=== PATIENT | female | born 1985 | race Hispanic/Latino ===

== ENCOUNTER 2018-03-16 09:22 | Emergency (ER) | payer SELFPAY ==
[2018-03-16 10:43] LABS: Absolute Lymphocytes (CBC) 2.6 K/uL (0.7-4.9); Absolute Monocytes 0.6 K/uL (0.1-1.3); Absolute Neutrophil 6.6 K/uL (1.8-8.0); Basophils % 0.8 % (0-1.3); Hematocrit 42.8 % (36.0-45.0); Lymphocytes % 25.8 % (15.3-44.8); MCH 29.7 pg (27.0-35.0); MCV 89.5 fL (80-100); MPV 8.4 fL (7.6-11.3); Monocytes % 5.9 % (3.3-12.3); RBC Red Blood Cell Count 4.79 M/uL (3.86-4.86)
[2018-03-16 10:54] LABS: Urine Blood NEGATIVE (NEG); Urine Glucose 2+ (NEG); Urine Protein NEGATIVE (NEG); Urine Specific Gravity 1.015 (1.005-1.030)
[2018-03-16 10:56] LABS: BUN Blood Urea Nitrogen 12 mg/dL (6-20); Bicarbonate 27 mEq/L (21-31); Glucose Level 245 mg/dL (65-120); Potassium 3.6 mEq/L (3.6-5.0); Sodium Level 134 mEq/L (135-145)
--- NOTE | 2018-03-16 11:02 | RAD REPORT ---
EXAM DESCRIPTION: CT - Head Brain Wo Cont - 03/16/2018 10:49 am CLINICAL HISTORY: Left arm numbness COMPARISON: March 2017 TECHNIQUE: Computed axial tomography of the head was obtained. IV contrast was not requested. All CT scans are performed using dose optimization technique as appropriate and may include automated exposure control or mA/KV adjustment according to patient size. FINDINGS: The most inferior slice demonstrates narrowing of the thecal sac at C1-2 measuring about 7 millimeters. An intracranial bleed is not seen . The ventricles are normal in caliber. No extra-axial fluid collection is noted. Moderate low-density areas within periventricular, deep and subcortical white matter likely represent ischemic changes secondary to small vessel disease. Fluid within the sinuses/ mastoids is not seen. IMPRESSION: Mild to moderate central spinal stenosis involving the upper cervical spine is suspected . MRI is recommended
--- NOTE | 2018-03-16 12:34 | ER ---
Nurse's Notes [facility] Name: Georgia Fields Age: 32 yrs Sex: Female : 1985 Arrival Date: 03/16/2018 Time: 09:23 Bed 19 Private MD: Diagnosis: Hyperglycemia, unspecified;Paresthesia of skin Presentation: 03/16 09:47 Presenting complaint: Patient states: Numbness to left leg that was present upon waking aj up this AM at 0530. Reports numbness has spread to left shoulder. Gait is undisturbed. Speech is clear with no facial droop noted at this time. Transition of care: patient was not received from another setting of care. Onset of symptoms was March 16, 2018 at 05:30. Initial Sepsis Screen: Does the patient meet any 2 criteria? No. Patient's initial sepsis screen is negative. Does the patient have a suspected source of infection? No. Patient's initial sepsis screen is negative. Care prior to arrival: None. 09:47 Method Of Arrival: Ambulatory 09:47 Acuity: MITESH 3 aj Triage Assessment: 09:50 General: Appears in no apparent distress. comfortable, Behavior is calm, cooperative, aj appropriate for age. Pain: Denies pain. Neuro: Level of Consciousness is awake, alert, obeys commands, Oriented to person, place, time, situation, Appropriate for age Jammer Hooker are equal bilaterally Moves all extremities. Full function Gait is steady, Speech is normal, Facial symmetry appears normal, Pupils are PERRLA, Numbness in left clavicle, anterior aspect of left upper chest, left arm and left leg. Respiratory: Airway is patent Trachea midline Respiratory effort is even, unlabored, Respiratory pattern is regular, symmetrical. Derm: Skin is intact, is healthy with good turgor, Skin is pink, warm \T\ dry. normal. 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 - Social history:: Smoking status: Patient/guardian denies using tobacco. - Family history:: not pertinent. - Hospitalizations: : No recent hospitalization is reported. Screenin:17 Abuse screen: Denies threats or abuse. Nutritional screening: No deficits noted. ae1 Tuberculosis screening: No symptoms or risk factors identified. Fall Risk None identified. Assessment: 10:00 General: Appears in no apparent distress. comfortable. Pain: Denies pain. Neuro: Level ae1 of Consciousness is awake, alert, obeys commands, Oriented to person, place, time, situation, Appropriate for age. Cardiovascular: Heart tones S1 S2 present Patient's skin is warm and dry. Respiratory: Airway is patent Respiratory effort is even, unlabored, Respiratory pattern is regular, symmetrical, Breath sounds are clear bilaterally. GI: No signs and/or symptoms were reported involving the gastrointestinal system. : No signs and/or symptoms were reported regarding the genitourinary system. EENT: No signs and/or symptoms were reported regarding the EENT system. Derm: No signs and/or symptoms reported regarding the dermatologic system. Musculoskeletal: Reports numbness in left arm and left leg. 12:36 Reassessment: Patient appears in no apparent distress at this time. Patient and/or ae1 family updated on plan of care and expected duration. Pain level reassessed. Patient denies pain at this time. Vital Signs: 09:50 BP 142 / 76; Pulse 83; Resp 19; Temp 98.4; Pulse Ox 97% on R/A; Weight 72.12 kg; Height aj 5 ft. 0 in. (152.40 cm); Pain 0/10; 10:43 BP 125 / 76; Pulse 72; Resp 18; Pulse Ox 99% on R/A; ae1 12:36 BP 137 / 82; Pulse 80; Resp 18; Pulse Ox 99% on R/A; ae1 09:50 Body Mass Index 31.05 (72.12 kg, 152.40 cm) aj ED Course: 09:23 Patient arrived in ED. as 09:50 Triage completed. aj 09:50 Arm band placed on right wrist. Patient placed in an exam room. aj 09:59 Jackson Ruiz MD is Attending Physician. rn 10:00 Placed in gown. Bed in low position. Call light in reach. Side rails up X 1. Pulse ox ae1 on. NIBP on. Warm blanket given. 10:41 Naveen Mccloud RN is Primary Nurse. ae1 10:42 Inserted saline lock: 20 gauge in right antecubital area, using aseptic technique. ae1 Blood collected. 10:[address] via wheelchair. ae1 10:49 CT Head Brain wo Cont In Process Unspecified. EDMS 11:52 Patient taken to an exam room, via wheelchair, Patient moved to MRI. lc 12:15 C Spine W Cont In Process Unspecified. EDMS 12:15 MRI completed. Patient tolerated well. Patient moved back from MRI. em2 12:17 No provider procedures requiring assistance completed. ae1 13:08 IV discontinued, intact, bleeding controlled, No redness/swelling at site. Pressure ae1 dressing applied. Administered Medications: No medications were administered Outcome: 12:34 Discharge ordered by . rn 13:08 Discharged to home ambulatory. ae1 13:08 Condition: stable 13:08 Discharge instructions given to patient, Instructed on discharge instructions, follow up and referral plans. medication usage, Demonstrated understanding of instructions, Prescriptions given X 2. 13:08 Patient left the ED. ae1 Signatures: Dispatcher [employer] EDMS My Cardenas RN RN aj Compean, Lorena lc Martinez, Amelia as Nieto, Roman, MD MD rn Montes, Enrique em2 Naveen Mccloud RN RN ae1 Corrections: (The following items were deleted from the chart) 12:22 12:17 IV discontinued, intact, bleeding controlled, No redness/swelling at site. ae1 Pressure dressing applied, ae1 12:22 12:18 Condition: stable ae1 ae1 12:22 12:18 Discharged to home ambulatory, ae1 ae1 12:22 12:18 Discharge instructions given to patient, Instructed on discharge instructions, ae1 follow up and referral plans. medication usage, Demonstrated understanding of instructions, Prescriptions given X 2, ae1
--- NOTE | 2018-03-16 12:34 | EDPHYS ---
Physician Documentation [facility] Name: Georgia Fields Age: 32 yrs Sex: Female : 1985 Arrival Date: 03/16/2018 Time: 09:23 Bed 19 Private MD: ED Physician Jackson Ruiz HPI: 03/16 10:20 This 32 yrs old Female presents to ER via Ambulatory with complaints of rn Numbness. 10:20 The patient's problem is reported as paresthesias, in left upper extremity, in left rn lower extremity. Onset: The symptoms/episode began/occurred this morning. The symptoms are alleviated by nothing. The symptoms are aggravated by nothing. Severity of symptoms: At their worst the symptoms were mild in the emergency department the symptoms are unchanged. The patient has not experienced similar symptoms in the past. Reports woke up this morning with numbness to left shoulder and left thigh, not entire limbs, no weakness, no other focal neurological complaint, reports diabetic for atleast 4-5 years but only took prescribed medication for first year. Does not give reason why. . 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 - Social history:: Smoking status: Patient/guardian denies using tobacco. - Family history:: not pertinent. - Hospitalizations: : No recent hospitalization is reported. ROS: 10:22 Constitutional: Negative for fever, chills, and weight loss, Eyes: Negative for injury, rn pain, redness, and discharge, Neck: Negative for injury, pain, and swelling, Cardiovascular: Negative for chest pain, palpitations, and edema, Respiratory: Negative for shortness of breath, cough, wheezing, and pleuritic chest pain, Abdomen/GI: Negative for abdominal pain, nausea, vomiting, diarrhea, and constipation, MS/Extremity: Negative for injury and deformity, Skin: Negative for injury, rash, and discoloration, Neuro: + paresthesias Exam: 10:22 Constitutional: This is a well developed, well nourished patient who is awake, alert, rn and in no acute distress. Head/Face: Normocephalic, atraumatic. Eyes: Pupils equal round and reactive to light, extra-ocular motions intact. Lids and lashes normal. Conjunctiva and sclera are non-icteric and not injected. Cornea within normal limits. Periorbital areas with no swelling, redness, or edema. Neck: Trachea midline, no thyromegaly or masses palpated, and no cervical lymphadenopathy. Supple, full range of motion without nuchal rigidity, or vertebral point tenderness. No Meningismus. Cardiovascular: Regular rate and rhythm with a normal S1 and S2. No gallops, murmurs, or rubs. Normal PMI, no JVD. No pulse deficits. Respiratory: Lungs have equal breath sounds bilaterally, clear to auscultation and percussion. No rales, rhonchi or wheezes noted. No increased work of breathing, no retractions or nasal flaring. Abdomen/GI: Soft, non-tender, with normal bowel sounds. No distension or tympany. No guarding or rebound. No evidence of tenderness throughout. MS/ Extremity: Pulses equal, no cyanosis. Neurovascular intact. Full, normal range of motion. Equal circumference. Neuro: Awake and alert, GCS 15, oriented to person, place, time, and situation. Cranial nerves II-XII grossly intact. Motor strength 5/5 in all extremities. Sensory grossly intact except for over left shoulder and left proximal leg. Cerebellar exam normal. Normal gait. Vital Signs: 09:50 BP 142 / 76; Pulse 83; Resp 19; Temp 98.4; Pulse Ox 97% on R/A; Weight 72.12 kg; Height aj 5 ft. 0 in. (152.40 cm); Pain 0/10; 10:43 BP 125 / 76; Pulse 72; Resp 18; Pulse Ox 99% on R/A; ae1 12:36 BP 137 / 82; Pulse 80; Resp 18; Pulse Ox 99% on R/A; ae1 09:50 Body Mass Index 31.05 (72.12 kg, 152.40 cm) aj MDM: 09:59 Patient medically screened. rn 12:32 Differential diagnosis: metabolic disorder, spinal cord compression, diabetic rn polyneuropathy. Data reviewed: vital signs, nurses notes, lab test result(s), radiologic studies, CT scan, MRI, and as a result, I will discharge patient. Counseling: I had a detailed discussion with the patient and/or guardian regarding: the historical points, exam findings, and any diagnostic results supporting the discharge/admit diagnosis, lab results, radiology results, the need for outpatient follow up, to return to the emergency department if symptoms worsen or persist or if there are any questions or concerns that arise at home. Special discussion: I discussed with the patient/guardian in detail that at this point there is no indication for admission to the hospital. It is understood, however, that if the symptoms persist or worsen the patient needs to return immediately for re-evaluation. Based on the history and exam findings, there is no indication for further emergent testing or inpatient evaluation. I discussed with the patient/guardian the need to see the neurologist for further evaluation of the symptoms. Neurosurgery. ED course: NO acute findings on MRI cspine or ct head, no weakness, no new trauma, will dc home with steroids and recommend both close neurosurgical f/u as well as better glucose control. . 03/16 10:10 Order name: CBC with Diff 03/16 10:10 Order name: Basic Metabolic Panel 03/16 10:10 Order name: Ketone, Serum 03/16 10:10 Order name: CBC with Automated Diff; Complete Time: 11:04 [facility] 03/16 10:10 Order name: Basic Metabolic Panel; Complete Time: 11: [facility] 03/16 10:10 Order name: Acetone Level; Complete Time: 11: [facility] 03/16 10:10 Order name: CT Head Brain wo Cont; Complete Time: 11:04 03/16 10:10 Order name: IV Start; Complete Time: 10:42 03/16 10:10 Order name: Urine Dipstick-Ancillary (obtain specimen); Complete Time: 10:42 03/16 10:10 Order name: Urine Test (obtain specimen); Complete Time: 10:42 03/16 10:42 Order name: Urine Dipstick--Ancillary (enter results); Complete Time: 11: [facility] 03/16 10:42 Order name: Urine --Ancillary (enter results); Complete Time: 11: [facility] 03/16 11:08 Order name: C Spine W Cont; Complete Time: 12:39 EDMS Administered Medications: No medications were administered Disposition: 03/16/18 12:34 Discharged to Home. Impression: Hyperglycemia, unspecified, Paresthesia of skin. - Condition is Stable. - Discharge Instructions: Hyperglycemia, Paresthesia. - Prescriptions for Metformin 500 mg Oral Tablet - take 1 tablet by ORAL route 2 times per day daily; 60 tablet. Medrol (Fahad) 4 mg Oral Tablets, Dose Pack - take 1 tablet by ORAL route as directed - follow package instructions; 1 packet. - Medication Reconciliation Form, Thank You Letter, Antibiotic Education, Prescription Opioid Use, Work release form form. - Follow up: Private Physician; When: As needed; Reason: Recheck today's complaints, Re-evaluation by your physician. - Problem is new. - Symptoms have improved. Signatures: Dispatcher [employer] My Larsen, RN Jackson Hairston MD MD rn Elliott, Andrea, RN RN ae1
--- NOTE | 2018-03-16 12:37 | RAD REPORT ---
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 Abnormal signal measuring 20 by 4 millimeters(cc x AP) lies posterior to the C1 and C2 abutting the thecal sac. The thecal sac tim sures 7 mm. An area of abnormal signal within the spinal cord at C1-2 measures 3 millimeters. 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 Abnormal signal posterior to C1 an d C2 narrows the thecal sac measuring 7 millimeters. This may represent granulation tissue. 3 millimeter area of abnormal signal within the spinal cord at this level most likely represents myel omalacia.
== END 2018-03-16 13:08 | disposition home or self-care (01) ==
LOC: ER 09:22
DX: E11.65 Type 2 diabetes mellitus with hyperglycemia (principal); I10 Essential (primary) hypertension
CPT/HCPCS: 36415; 70450; 72142; 80048; 81003; 81025; 82009; 85025; 99284

== ENCOUNTER 2018-09-08 19:14 | Emergency (ER) | payer OTHER, SELFPAY ==
[2018-09-08] MEDS ORDERED: IBUPROFEN 200 MG TAB PO ONE (20:11)
[2018-09-08] MEDS ORDERED: CEFTRIAXONE 1000 MG/VIAL ONE (20:11)
[2018-09-08] MEDS ORDERED: AZITHROMYCIN 250 MG TAB ONE (20:11)
[2018-09-08] MEDS ORDERED: IBUPROFEN 400 MG TAB ONE (20:11)
[2018-09-08] MEDS ORDERED: WATER FOR INJ,STERILE 10 ML ONE (20:11)
[2018-09-08] MEDS ORDERED: levoFLOXacin 750 MG TAB ONE (20:39)
--- NOTE | 2018-09-08 20:49 | RAD REPORT ---
EXAM DESCRIPTION: Lakisha Brock (2 Views)09/08/2018 8:19 pm CLINICAL HISTORY: Cough COMPARISON: None FINDINGS: The lungs appear clear of acute infiltrate. The heart is normal size IMPRESSION: No acute abnormalities displayed
--- NOTE | 2018-09-08 20:52 | ER ---
Nurse's Notes [facility] Name: Georgia Fields Age: 33 yrs Sex: Female : 1985 Arrival Date: 09/08/2018 Time: 19:16 Bed 27 Private MD: Diagnosis: Acute upper respiratory infection, unspecified;Fever, unspecified;Cough;Type 2 diabetes mellitus;Urinary tract infection, site not specified Presentation: 09/08 19:28 Presenting complaint: Patient states: Flu like symptoms that started yesterday. Reports aj headache for 3 weeks. Transition of care: patient was not received from another setting of care. Onset of symptoms was September 07, 2018. Risk Assessment: Do you want to hurt yourself or someone else? Patient reports no desire to harm self or others. Initial Sepsis Screen: Does the patient meet any 2 criteria? No. Patient's initial sepsis screen is negative. Does the patient have a suspected source of infection? No. Patient's initial sepsis screen is negative. Care prior to arrival: None. 19:28 Method Of Arrival: Ambulatory 19:28 Acuity: MITESH 4 aj Triage Assessment: 19:29 General: Appears in no apparent distress. ill, Behavior is calm, cooperative, aj appropriate for age. Pain: Denies pain. EENT: Reports nasal congestion nasal discharge. Neuro: Level of Consciousness is awake, alert, obeys commands, Oriented to person, place, time, situation, Appropriate for age. Neuro: Reports headache. Respiratory: Reports cough that is Airway is patent Trachea midline Respiratory effort is even, unlabored, Respiratory pattern is regular, symmetrical, Onset: The symptoms/episode began/occurred yesterday, the patient has mild shortness of breath. Derm: Skin is intact, is healthy with good turgor, Skin is pink, warm \T\ dry. normal. 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 - Social history:: Smoking status: Patient/guardian denies using tobacco. - Ebola Screening: : Patient negative for fever greater than or equal to 101.5 degrees Fahrenheit, and additional compatible Ebola Virus Disease symptoms Patient denies exposure to infectious person Patient denies travel to an Ebola-affected area in the 21 days before illness onset No symptoms or risks identified at this time. - Family history:: not pertinent. Screenin:58 Abuse screen: Denies threats or abuse. Denies injuries from another. Nutritional mg2 screening: No deficits noted. Tuberculosis screening: No symptoms or risk factors identified. Fall Risk No IV (0 pts). Assessment: 19:57 General: Appears in no apparent distress. comfortable, Behavior is calm, cooperative. mg2 Pain: Complains of pain in head Pain does not radiate. Neuro: Level of Consciousness is awake, alert, obeys commands, Oriented to person, place, time, situation, Reports headache. Cardiovascular: Capillary refill < 3 seconds Patient's skin is warm and dry. Respiratory: Airway is patent Respiratory effort is even, unlabored, Respiratory pattern is regular, symmetrical, Breath sounds are clear. GI: No signs and/or symptoms were reported involving the gastrointestinal system. : No signs and/or symptoms were reported regarding the genitourinary system. EENT: No signs and/or symptoms were reported regarding the EENT system. Derm: Skin is intact, is healthy with good turgor, Skin is pink, warm \T\ dry. normal. Musculoskeletal: No signs and/or symptoms reported regarding the musculoskeletal system. 21:22 Cardiovascular: Rhythm is regular. mg2 Vital Signs: 19:29 BP 140 / 57; Pulse 116; Resp 20; Temp 99.8(O); Pulse Ox 100% on R/A; Weight 72.57 kg; aj Height 5 ft. 0 in. (152.40 cm); 21:10 BP 130 / 75; Pulse 78; Resp 18; Pulse Ox 100% on R/A; Pain 0/10; mg2 19:29 Body Mass Index 31.25 (72.57 kg, 152.40 cm) ED Course: 19:16 Patient arrived in ED. rg4 19:29 Triage completed. aj 19:29 Arm band placed on right wrist. Patient placed in an exam room. aj 19:49 Demetri Gtz, JEREMÍAS is Primary Nurse. mg2 19:52 Alonzo Lee MD is Attending Physician. nasir 19:59 Patient has correct armband on for positive identification. Pulse ox on. NIBP on. mg2 20:18 Chest Pa And Lat (2 Views) XRAY In Process Unspecified. EDMS 21:08 No provider procedures requiring assistance completed. Patient did not have IV access mg2 during this emergency room visit. Administered Medications: 20:28 Drug: Motrin 600 mg Route: PO; mg2 21:10 Follow up: Response: No adverse reaction; Marked relief of symptoms mg2 20:28 Drug: Rocephin (cefTRIAXone) 1 grams Route: IM; Site: right gluteus; mg2 21:10 Follow up: Response: No adverse reaction mg2 20:28 Drug: Zithromax 1 grams Route: PO; mg2 21:10 Follow up: Response: No adverse reaction mg2 20:37 Drug: LevOfloxacin 750 mg Route: PO; mg2 21:09 Follow up: Response: No adverse reaction mg2 Outcome: 20:51 Discharge ordered by . nasir 21:10 Discharged to home ambulatory. mg2 21:10 Condition: stable 21:10 Discharge instructions given to patient, Instructed on discharge instructions, follow up and referral plans. medication usage. 21:22 Patient left the ED. mg2 Addendum: 09/11/2018 07:13 Addendum: Culture Results: Positive urine culture. No further action required. Bacteria s s sensitive to prescribed antibiotic. Signatures: Dispatcher [employer] EDMS yM Cardenas RN RN aj Anderson, Corey, MD MD cha Smirch, Shelby, RN RN ss Garcia, Rubi rg4 Gardose, Michele, RN RN mg2
--- NOTE | 2018-09-08 20:52 | EDPHYS ---
Physician Documentation [facility] Name: Georgia Fields Age: 33 yrs Sex: Female : 1985 Arrival Date: 09/08/2018 Time: 19:16 Bed 27 Private MD: ED Physician Alonzo Lee HPI: 09/08 19:57 This 33 yrs old Female presents to ER via Ambulatory with complaints of Fever, nasir Breathing Difficulty. 19:57 The patient reports fever, that was measured at 102 degrees Fahrenheit. Onset: The nasir symptoms/episode began/occurred 2 day(s) ago. Modifying factors: there are no obvious modifying factors. Associated signs and symptoms: Pertinent positives:. Severity of symptoms: At their worst the symptoms were mild in the emergency department the symptoms are unchanged. The patient has not experienced similar symptoms in the past. 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 - Social history:: Smoking status: Patient/guardian denies using tobacco. - Ebola Screening: : Patient negative for fever greater than or equal to 101.5 degrees Fahrenheit, and additional compatible Ebola Virus Disease symptoms Patient denies exposure to infectious person Patient denies travel to an Ebola-affected area in the 21 days before illness onset No symptoms or risks identified at this time. - Family history:: not pertinent. ROS: 19:57 Constitutional: Negative for fever, chills, and weight loss, Eyes: Negative for injury, nsair pain, redness, and discharge, ENT: Negative for injury, pain, and discharge, Neck: Negative for injury, pain, and swelling, Cardiovascular: Negative for chest pain, palpitations, and edema, Abdomen/GI: Negative for abdominal pain, nausea, vomiting, diarrhea, and constipation, Back: Negative for injury and pain, : Negative for injury, bleeding, discharge, and swelling, MS/Extremity: Negative for injury and deformity, Skin: Negative for injury, rash, and discoloration, Neuro: Negative for headache, weakness, numbness, tingling, and seizure, Psych: Negative for depression, anxiety, suicide ideation, homicidal ideation, and hallucinations, Allergy/Immunology: Negative for hives, rash, and allergies, Endocrine: Negative for neck swelling, polydipsia, polyuria, polyphagia, and marked weight changes, Hematologic/Lymphatic: Negative for swollen nodes, abnormal bleeding, and unusual bruising. 19:57 Respiratory: Positive for cough, shortness of breath, at rest. Exam: 19:57 Head/Face: Normocephalic, atraumatic. Eyes: Pupils equal round and reactive to light, nasir extra-ocular motions intact. Lids and lashes normal. Conjunctiva and sclera are non-icteric and not injected. Cornea within normal limits. Periorbital areas with no swelling, redness, or edema. ENT: Nares patent. No nasal discharge, no septal abnormalities noted. Tympanic membranes are normal and external auditory canals are clear. Oropharynx with no redness, swelling, or masses, exudates, or evidence of obstruction, uvula midline. Mucous membranes moist. Neck: Trachea midline, no thyromegaly or masses palpated, and no cervical lymphadenopathy. Supple, full range of motion without nuchal rigidity, or vertebral point tenderness. No Meningismus. Chest/axilla: Normal chest wall appearance and motion. Nontender with no deformity. No lesions are appreciated. Respiratory: Lungs have equal breath sounds bilaterally, clear to auscultation and percussion. No rales, rhonchi or wheezes noted. No increased work of breathing, no retractions or nasal flaring. Abdomen/GI: Soft, non-tender, with normal bowel sounds. No distension or tympany. No guarding or rebound. No evidence of tenderness throughout. Back: No spinal tenderness. No costovertebral tenderness. Full range of motion. Skin: Warm, dry with normal turgor. Normal color with no rashes, no lesions, and no evidence of cellulitis. MS/ Extremity: Pulses equal, no cyanosis. Neurovascular intact. Full, normal range of motion. Neuro: Awake and alert, GCS 15, oriented to person, place, time, and situation. Cranial nerves II-XII grossly intact. Motor strength 5/5 in all extremities. Sensory grossly intact. Cerebellar exam normal. Normal gait. Psych: Awake, alert, with orientation to person, place and time. Behavior, mood, and affect are within normal limits. 19:57 Cardiovascular: Rate: tachycardic, Rhythm: regular, Pulses: Pulses are 4+ in bilateral radial, brachial, femoral, popliteal, posterior tibial and and dorsalis pedis arteries.. Heart sounds: normal, Edema: is not appreciated, JVD: is not appreciated. Vital Signs: 19:29 BP 140 / 57; Pulse 116; Resp 20; Temp 99.8(O); Pulse Ox 100% on R/A; Weight 72.57 kg; aj Height 5 ft. 0 in. (152.40 cm); 21:10 BP 130 / 75; Pulse 78; Resp 18; Pulse Ox 100% on R/A; Pain 0/10; mg2 19:29 Body Mass Index 31.25 (72.57 kg, 152.40 cm) aj MDM: 19:52 Patient medically screened. [facility] 20:01 Data reviewed: vital signs, nurses notes, lab test result(s), radiologic studies, plain [facility] films. 09/08 19:57 Order name: Influenza Screen (a \T\ B); Complete Time: 20:50 [facility] 09/08 20:14 Order name: Urine Culture [facility] 09/08 19:57 Order name: Chest Pa And Lat (2 Views) XRAY; Complete Time: 20:50 [facility] 09/08 20:23 Order name: Urine Dipstick--Ancillary (enter results) [place] 09/08 19:57 Order name: Urine Dipstick-Ancillary (obtain specimen); Complete Time: 20:28 [facility] 09/08 19:57 Order name: Urine Test (obtain specimen); Complete Time: 20:28 [facility] Administered Medications: 20:28 Drug: Motrin 600 mg Route: PO; mg2 21:10 Follow up: Response: No adverse reaction; Marked relief of symptoms mg2 20:28 Drug: Rocephin (cefTRIAXone) 1 grams Route: IM; Site: right gluteus; mg2 21:10 Follow up: Response: No adverse reaction mg2 20:28 Drug: Zithromax 1 grams Route: PO; mg2 21:10 Follow up: Response: No adverse reaction mg2 20:37 Drug: LevOfloxacin 750 mg Route: PO; mg2 21:09 Follow up: Response: No adverse reaction mg2 Disposition: 09/08/18 20:51 Discharged to Home. Impression: Acute upper respiratory infection, unspecified, Fever, unspecified, Cough, Type 2 diabetes mellitus, Urinary tract infection, site not specified. - Condition is Stable. - Discharge Instructions: Type 2 Diabetes Mellitus, Diagnosis, Adult, Upper Respiratory Infection, Adult, Cool Mist Vaporizer, Upper Respiratory Infection, Adult, [id number], Cough, Adult, Vjrk-nf-[id number], Cough, Adult, Type 2 Diabetes Mellitus, Diagnosis, Adult, Jilw-cv-Stbh, Type 2 Diabetes Mellitus, Self Care, Adult, Type 2 Diabetes Mellitus, Self Care, Adult, Lfup-ed-[id number]. - Prescriptions for Cheratussin AC 10- 100 mg/5 mL Oral liquid - take 10 milliliter by ORAL route every 4 hours; 160 milliliter. Levaquin 750 mg Oral Tablet - take 1 tablet by ORAL route once daily for 7 days; 7 tablet. - Medication Reconciliation Form, Thank You Letter, Antibiotic Education, Prescription Opioid Use, Work release form form. - Follow up: Private Physician; When: 2 - 3 days; Reason: Recheck today's complaints, Continuance of care, Re-evaluation by your physician. - Problem is new. - Symptoms have improved. Signatures: Dispatcher [employer] My Enriquez RN RN aj Anderson, Corey, MD MD cha Gardose, Michele, RN RN mg2 Corrections: (The following items were deleted from the chart) 21:22 20:51 09/08/2018 20:51 Discharged to Home. Impression: Acute upper respiratory mg2 infection, unspecified; Fever, unspecified; Cough; Type 2 diabetes mellitus; Urinary tract infection, site not specified. Condition is Stable. Discharge Instructions: Upper Respiratory Infection, Adult, Cool Mist Vaporizer, Upper Respiratory Infection, Adult, Dunp-tg-Ldvy, Cough, Adult, Lhgx-ua-Itdw, Cough, Adult, Type 2 Diabetes Mellitus, Diagnosis, Adult, Type 2 Diabetes Mellitus, Diagnosis, Adult, Waeo-hf-Vzox, Type 2 Diabetes Mellitus, Self Care, Adult, Type 2 Diabetes Mellitus, Self Care, Adult, Accv-bj-Cimh. Prescriptions for Cheratussin AC 10-100 mg/5 mL Oral liquid - take 10 milliliter by ORAL route every 4 hours; 160 milliliter, Levaquin 750 mg Oral Tablet - take 1 tablet by ORAL route once daily for 7 days; 7 tablet. and Forms are Medication Reconciliation Form, Thank You Letter, Antibiotic Education, Prescription Opioid Use. Follow up: Private Physician; When: 2 - 3 days; Reason: Recheck today's complaints, Continuance of care, Re-evaluation by your physician. Problem is new. Symptoms have improved. nasir
[2018-09-08 21:17] LABS: Urine Blood 1+ (NEG); Urine Glucose 2+ (NEG); Urine Protein 1+ (NEG); Urine Specific Gravity <1.005 (1.005-1.030)
== END 2018-09-08 21:22 | disposition home or self-care (01) ==
LOC: ER 19:14
DX: J06.9 Acute upper respiratory infection, unspecified (principal); R05 Cough; N39.0 Urinary tract infection, site not specified; E11.9 Type 2 diabetes mellitus without complications
CPT/HCPCS: 71046; 81003; 87077; 87086; 87088; 87186; 87804; 96372; 99283

== ENCOUNTER 2019-02-24 17:58 | Emergency (ER) | payer OTHER ==
[2019-02-24] MEDS ORDERED: NA CHLORIDE 0.9% 1,000 ML ONE ×2 (19:42→23:09)
[2019-02-24] MEDS ORDERED: ACETAMINOPHEN 500 MG TAB ONE (19:42)
[2019-02-24 19:50] LABS: Absolute Monocytes 1.5 K/uL (0.1-1.3); Absolute Neutrophil 8.6 K/uL (1.8-8.0); Basophils % 0.2 % (0-1.3); Eosinophils % 0.3 % (0-4.4); Hematocrit 34.7 % (36.0-45.0); Lymphocytes % 16.5 % (15.3-44.8); Monocytes % 12.1 % (3.3-12.3); RBC Red Blood Cell Count 3.91 M/uL (3.86-4.86)
[2019-02-24 20:04] LABS: Potassium 3.2 mmol/L (3.5-5.1)
[2019-02-24] MEDS ORDERED: BENZONATATE 100 MG CAP PO ONE (20:29)
[2019-02-24] MEDS ORDERED: POTASSIUM 25 MEQ EFFERV TAB ONE (20:30)
--- NOTE | 2019-02-24 20:50 | RAD REPORT ---
EXAM DESCRIPTION: RAD - Chest Pa And Lat (2 Views) - 02/24/2019 7:58 pm CLINICAL HISTORY: Bronchitis, fever COMPARISON: August 2018 TECHNIQUE: PA and lateral views of the chest were obtained. FINDINGS: The lungs are clear. Lung markings are similar to comparison. No peribronchial thickening identified. Heart size is normal and central vasculature is within normal limits. No pleural effusi on or pneumothorax seen. No acute bony finding noted. No aortic abnormality. IMPRESSION: No acute cardiopulmonary process. No significant change from comparison.
--- NOTE | 2019-02-24 21:03 | RAD REPORT ---
EXAM DESCRIPTION: CT - Head Brain Wo Cont - 02/24/2019 8:58 pm CLINICAL HISTORY: Headache COMPARISON: February 2018 TECHNIQUE: Axial 5 mm thick images of the head were obtained without IV contrast. All CT scans are performed using dose optimization technique as appropriate and may include automated exposure control or mA/KV adjustment according to patient size. FINDINGS: No intracranial hemorrhage, mass, edema or shift of mid-line structures. No acute infarcti on changes seen. No abnormal extra-axial fluid collections. Ventricles are normal. Mastoid air cells and visualized portions of the paranasal sinuses are clear. No acute bony findings. No significant change from comparison. IMPRESSION: Negative non-contrast CT head examination.
[2019-02-24 21:40] LABS: Urine Bacteria <20 /HPF (<20); Urine Culture Reflex Order REFLEXED; Urine RBC <5 /HPF (NONE SEEN)
[2019-02-24 21:41] LABS: Urine Blood 3+ (NEG); Urine Glucose 2+ (NEG); Urine Protein 3+ (NEG)
[2019-02-24 22:01] LABS: Appearance CLEAR (CLEAR); Body Fluid Source CSF; Color of fluid Colorless (COLORLESS); Fluid Total Volume 7.5 ml
[2019-02-24 22:12] LABS: Body Fluid WBC 4 /mm^3
[2019-02-24 22:55] LABS: Appearance CLEAR (CLEAR); Body Fluid Source CSF; Color of fluid Colorless (COLORLESS)
[2019-02-24 22:57] LABS: CSF Glucose 108 mg/dL (40-70)
[2019-02-24 22:58] LABS: Body Fluid WBC 4 /mm^3
--- NOTE | 2019-02-25 00:02 | ER ---
Nurse's Notes 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 Transition of care: patient was not received from another setting of care. Onset of symptoms was February 24, 2019. Risk Assessment: Do you want to hurt yourself or someone else? Patient reports no desire to harm self or others. Initial Sepsis Screen: Does the patient meet any 2 criteria? No. Patient's initial sepsis screen is negative. Does the patient have a suspected source of infection? No. Patient's initial sepsis screen is negative. Care prior to arrival: None. 18:02 Method Of Arrival: Ambulatory 18:02 Acuity: MITESH 3 hj Triage Assessment: 02/25 00:23 Headache History: Denies prior headaches. Pain: Denies pain. Also complains of. 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 - Ebola Screening: : No symptoms or risks identified at this time. Screenin:06 Abuse screen: Denies threats or abuse. Denies injuries from another. Nutritional ed1 screening: No deficits noted. Tuberculosis screening: No symptoms or risk factors identified. Fall Risk None identified. Assessment: 19:06 General: Appears uncomfortable, Behavior is calm, cooperative. Pain: Complains of pain ed1 in head Pain does not radiate. Pain currently is 6 out of 10 on a pain scale. Quality of pain is described as aching, Pain began 1 day ago. Is continuous. Neuro: Level of Consciousness is awake, alert, obeys commands, Oriented to person, place, time, situation, Reports headache in entire frontal area. Cardiovascular: Denies chest pain, Heart tones S1 S2 present. Respiratory: Reports cough that is non-productive, persistent Airway is patent Respiratory effort is even, unlabored, Respiratory pattern is regular, symmetrical, Breath sounds are clear bilaterally. GI: No signs and/or symptoms were reported involving the gastrointestinal system. : No signs and/or symptoms were reported regarding the genitourinary system. EENT: Oral mucosa is moist. Derm: Skin is intact, is healthy with good turgor, Skin is dry, Skin is normal, Skin temperature is warm. Musculoskeletal: Circulation, motion, and sensation intact. Range of motion: intact in all extremities. 20:44 Reassessment: Patient appears in no apparent distress at this time. No changes from ed1 previously documented assessment. Patient and/or family updated on plan of care and expected duration. Pain level reassessed. Patient is alert, oriented x 3, equal unlabored respirations, skin warm/dry/pink. Patient states symptoms have not improved. 21:41 Reassessment: Patient appears in no apparent distress at this time. Patient and/or ed1 family updated on plan of care and expected duration. Pain level reassessed. Patient is alert, oriented x 3, equal unlabored respirations, skin warm/dry/pink. Patient states symptoms have not improved. 23:06 Reassessment: Patient and/or family updated on plan of care and expected duration. Pain cr4 level reassessed. Patient is alert, oriented x 3, equal unlabored respirations, skin warm/dry/pink. Patient denies pain at this time. Neuro: Denies weakness dizziness, numbness headache. 23:59 Reassessment: Patient and/or family updated on plan of care and expected duration. Pain cr4 level reassessed. Patient is alert, oriented x 3, equal unlabored respirations, skin warm/dry/pink. Vital Signs: 18:05 BP 125 / 60; Pulse 111; Resp 18; Temp 101.7(O); Pulse Ox 98% on R/A; Weight 74.39 kg; hj Height 5 ft. 0 in. (152.40 cm); 18:33 Temp 99.8(O); hj 19:06 BP 107 / 63; Pulse 91; Resp 18; Pulse Ox 100% on R/A; Pain 6/10; ed1 21:41 BP 111 / 62; Pulse 90; Resp 20; Pulse Ox 100% on R/A; Pain 6/10; ed1 22:56 BP 108 / 48; Pulse 90; Resp 16; Pulse Ox 100% ; Pain 0/10; cr4 23:43 Temp 97.8; cr4 23:59 BP 101 / 57; Pulse 78; Resp 16; Pulse Ox 100% ; Pain 0/10; cr4 04/06 00:08 Temp 98.5; cr4 04/05 18:05 Body Mass Index 32.03 (74.39 kg, 152.40 cm) ED Course: 04 17:59 Patient arrived in ED. rg4 18:05 Triage completed. hj 18:08 Arm band placed on left wrist. hj 19:11 Alonzo Ward PA is PHCP. cp 19:11 Ryder Vogel MD is Attending Physician. cp 19:22 Nancy Haywood, JEREMÍAS is Primary Nurse. ed1 19:44 Initial lab(s) drawn, by ks, sent to lab. Flu and/or RSV swab sent to lab. Strep swab lt1 sent to lab. Inserted saline lock: 20 gauge in right antecubital area, using aseptic technique. 19:44 Strep Sent. lt1 19:44 Influenza Screen (a \T\ B) Sent. lt1 19:55 XRAY Chest Pa And Lat (2 Views) In Process Unspecified. EDMS 20:44 Patient has correct armband on for positive identification. Placed in gown. Bed in low ed1 position. Call light in reach. Side rails up X 1. Consent for a lumbar puncture explained by physician, signed by patient. 20:58 CT Head Brain wo Cont In Process Unspecified. EDMS 21:41 Assist provider with lumbar puncture: Set up LP tray. Performed by Alonzo GALO CSF is ed1 clear. Sample collected. Sample sent to lab. Puncture site dressed with band aid, Procedure was successful. Patient tolerated well. 21:43 Primary Nurse role handed off by Nancy Haywood, RN ed1 22:55 Adams Ramsey RN is Primary Nurse. 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 Raghavendra okay for patient to get up. 02/25 00:22 IV discontinued, intact, bleeding controlled, No redness/swelling at site. cr4 Administered Medications: 02/24 19:39 Drug: Tylenol 1000 mg Route: PO; rv 21:04 Follow up: Response: No adverse reaction; Pain is decreased ed1 19:40 Drug: NS 0.9% 1000 ml Route: IV; Rate: 1 bolus; Site: left antecubital; rv 21:04 Follow up: IV Status: Completed infusion; IV Intake: 1000ml ed1 20:21 Drug: Potassium Effervescent Tablet 50 mEq Route: PO; ed1 21:04 Follow up: Response: No adverse reaction ed1 20:22 Drug: Tessalon Perle 200 mg Route: PO; ed1 21:05 Follow up: Response: No adverse reaction ed1 23:00 Drug: NS 0.9% 1000 ml Route: IV; Rate: 1 bolus; Site: left antecubital; rv 04 00:12 Follow up: IV Status: Completed infusion; IV Intake: 1000ml cr4 Intake: 02/24 21:04 IV: 1000ml; Total: 1000ml. ed1 02/25 00:12 IV: 1000ml; Total: 2000ml. cr4 Outcome: 00:01 Discharge ordered by . cp 00:22 Discharged to home ambulatory, with family. cr4 00:22 Condition: good 00:22 Discharge instructions given to patient, Instructed on discharge instructions, follow up and referral plans. medication usage, Demonstrated understanding of instructions, follow-up care, medications, Prescriptions given X 2. 00:24 Patient left the ED. cr4 Signatures: Dispatcher [employer] Maria De Jesus Aguilar RN RN cr4 Nancy Haywood RN RN ed1 Gabo Humphreys RN RN hj Page, Corey, PA PA cp Garcia, Rubi rg4 Adams Ramsey, RN RN rv Rosana Prasad lt1 Corrections: (The following items were deleted from the chart) 02/24 18:08 18:05 Pulse 111bpm; Resp 18bpm; Pulse Ox 98% RA; Temp 101.7F Oral; 74.39 kg; Height 5 hj ft. 0 in.; BMI: 32.0; hj
--- NOTE | 2019-02-25 00:02 | EDPHYS ---
Physician Documentation [facility] Name: Georgia Fields Age: 33 yrs Sex: Female : 1985 Arrival Date: 02/24/2019 Time: 17:59 Bed 28 Private MD: ED Physician Ryder Vogel HPI: 02/24 19:25 This 33 yrs old Female presents to ER via Ambulatory with complaints of Fever, cp Headache. 19:25 The patient reports fever, that was measured at 102 degrees Fahrenheit. Onset: The cp symptoms/episode began/occurred 3 day(s) ago. Associated signs and symptoms: Pertinent positives: cough, headache, sore throat. Severity of symptoms: in the emergency department the symptoms are unchanged despite home interventions. The patient has been recently seen by a physician: the patient's primary care provider, with similar presenting complaints, and apparently given a diagnosis of Bronchitis, was given a prescription for antibiotics, patient reports PCP told her to go to ED if fever and headache persisted. Patient denies history of similar headaches. [employer]: 23:41 LMP 02/24/2019 cr4 Historical: - Allergies: 18:05 No Known Allergies; hj - PMHx: 18:05 Diabetes - NIDDM; Hypertension; hj - PSHx: 18:05 ; hj - Social history:: Smoking status: Patient/guardian denies using tobacco. - Ebola Screening: : No symptoms or risks identified at this time. ROS: 19:40 Constitutional: Positive for fever, Negative for poor PO intake. cp 19:40 Eyes: Negative for injury, pain, redness, and discharge. cp 19:40 ENT: Negative for drainage from ear(s), ear pain, sore throat, difficulty swallowing, difficulty handling secretions. 19:40 Neck: Negative for pain with movement, pain at rest, stiffness, tenderness. 19:40 Cardiovascular: Negative for chest pain, palpitations. 19:40 Respiratory: Positive for cough, Negative for shortness of breath, wheezing. 19:40 Abdomen/GI: Negative for abdominal pain, vomiting, diarrhea, constipation. 19:40 Back: Negative for pain at rest, pain with movement. 19:40 Skin: Negative for rash. 19:40 Neuro: Positive for headache, Negative for altered mental status, dizziness, weakness. 19:40 All other systems are negative. Exam: 19:45 Constitutional: The patient appears in no acute distress, alert, awake, non-toxic, well cp developed, well nourished. 19:45 Head/Face: Normocephalic, atraumatic. Eyes: Pupils equal round and reactive to light, cp extra-ocular motions intact. Lids and lashes normal. Conjunctiva and sclera are non-icteric and not injected. Cornea within normal limits. Periorbital areas with no swelling, redness, or edema. 19:45 ENT: External ear(s): are unremarkable, Ear canal(s): are normal, clear, TM's: bulging, is not appreciated, bilaterally, dullness, bilaterally, erythema, is not appreciated, bilaterally, Nose: is normal, Mouth: Lips: moist, Oral mucosa: moist, Posterior pharynx: Airway: no evidence of obstruction, patent, Tonsils: with erythema, no enlargement, no exudate, Uvula: midline, swelling, is not appreciated, erythema, that is mild, exudate, is not appreciated. 19:45 Neck: ROM/movement: limited range of motion, is not appreciated, nuchal rigidity, is not appreciated, Lymph nodes: no appreciated lymphadenopathy. 19:45 Chest/axilla: Inspection: normal, Palpation: is normal, no crepitus, no tenderness. 19:45 Cardiovascular: Rate: normal, Rhythm: regular. 19:45 Respiratory: the patient does not display signs of respiratory distress, Respirations: normal, no use of accessory muscles, no retractions, no splinting, no tachypnea, labored breathing, is not present, Breath sounds: decreased breath sounds, are not appreciated, stridor, is not appreciated, wheezing: is not appreciated. 19:45 Abdomen/GI: Inspection: abdomen appears normal, Bowel sounds: active, all quadrants, Palpation: abdomen is soft and non-tender, in all quadrants, rebound tenderness, is not appreciated, voluntary guarding, is not appreciated, involuntary guarding, is not appreciated. 19:45 Back: pain, is absent, ROM is normal. 19:45 Skin: cellulitis, is not appreciated, no rash present. 19:45 Neuro: Orientation: to person, place \T\ time. Mentation: is normal, Cerebellar function: is grossly normal, Motor: moves all fours, strength is normal, Sensation: is normal. Vital Signs: 18:05 BP 125 / 60; Pulse 111; Resp 18; Temp 101.7(O); Pulse Ox 98% on R/A; Weight 74.39 kg; Height 5 ft. 0 in. (152.40 cm); 18:33 Temp 99.8(O); hj 19:06 BP 107 / 63; Pulse 91; Resp 18; Pulse Ox 100% on R/A; Pain 6/10; ed1 21:41 BP 111 / 62; Pulse 90; Resp 20; Pulse Ox 100% on R/A; Pain 6/10; ed1 22:56 BP 108 / 48; Pulse 90; Resp 16; Pulse Ox 100% ; Pain 0/10; cr4 23:43 Temp 97.8; cr4 23:59 BP 101 / 57; Pulse 78; Resp 16; Pulse Ox 100% ; Pain 0/10; cr4 02/25 00:08 Temp 98.5; cr4 02/24 18:05 Body Mass Index 32.03 (74.39 kg, 152.40 cm) Procedures: 02/24 21:43 Lumbar Puncture: Patient placed in sitting position. Prepped with Betadine. Draped cp using sterile technique. Collected 6 ml's of clear fluid. Sample sent to lab. Puncture site dressed with band aid, Patient tolerated well. MDM: 19:11 Patient medically screened. cp 19:45 Differential diagnosis: URI, bronchitis, pneumonia UTI, meningitis, influenza, strep. 02/25 00:00 Data reviewed: vital signs, nurses notes, lab test result(s), radiologic studies, CT cp scan, plain films, I have discussed the patient's presentation/case with the attending Emergency Department Physician; and as a result, I will discharge patient. 00:00 Test interpretation: by ED physician or midlevel provider: Chest xray negative for cp acute infiltrates. Counseling: I had a detailed discussion with the patient and/or guardian regarding: the historical points, exam findings, and any diagnostic results supporting the discharge/admit diagnosis, lab results, radiology results, to return to the emergency department if symptoms worsen or persist or if there are any questions or concerns that arise at home. Response to treatment: the patient's symptoms have markedly improved after treatment, VSS. Headache resolved with IV fluids and meds, and as a result, I will discharge patient. 02/24 19:20 Order name: Urine Microscopic Only; Complete Time: 22:43 cp 02/24 22:43 Interpretation: Normal except: UWBC 5-10. cp 02/24 19:20 Order name: CBC with Diff; Complete Time: 19:52 cp 02/24 20:08 Interpretation: Normal except: WBC 12.1; HGB 11.5; HCT 34.7; NEUT A 8.6; MNA 1.5. cp 02/24 19:20 Order name: BMP; Complete Time: 20:07 cp 02/24 20:07 Interpretation: Normal except: NA 133; K 3.2; GLUC 229; GFR 78. cp 02/24 19:20 Order name: Strep; Complete Time: 21:06 cp 02/24 19:20 Order name: Influenza Screen (a \T\ B); Complete Time: 21:06 cp 02/24 19:40 Order name: Urine Dipstick--Ancillary (enter results); Complete Time: 22:43 cm6 02/24 19:20 Order name: XRAY Chest Pa And Lat (2 Views); Complete Time: 21:06 cp 02/24 19:40 Order name: Urine --Ancillary (enter results); Complete Time: 22:43 cm6 02/24 20:31 Order name: Throat Culture [facility] 02/24 21:23 Order name: CSF Bacterial Antigens (tube 1); Complete Time: 22:43 ed1 02/24 21:23 Order name: Csf Culture ed1 02/24 21:23 Order name: Fluid Cell Count,Body; Complete Time: 23:58 ed1 02/24 21:23 Order name: Spinal Fluid Profile; Complete Time: 23:58 ed1 02/24 21:41 Order name: Urine Culture [facility] 02/24 19:20 Order name: Urine Dipstick-Ancillary (obtain specimen); Complete Time: 19:37 cp 02/24 19:20 Order name: Urine Test (obtain specimen); Complete Time: 19:37 cp 02/24 20:49 Order name: CT Head Brain wo Cont; Complete Time: 21:06 cp 02/24 21:23 Order name: LP Consents; Complete Time: 21:23 ed1 02/24 21:23 Order name: LP Setup; Complete Time: 21:23 ed1 Administered Medications: 02/24 19:39 Drug: Tylenol 1000 mg Route: PO; rv 21:04 Follow up: Response: No adverse reaction; Pain is decreased ed1 19:40 Drug: NS 0.9% 1000 ml Route: IV; Rate: 1 bolus; Site: left antecubital; rv 21:04 Follow up: IV Status: Completed infusion; IV Intake: 1000ml ed1 20:21 Drug: Potassium Effervescent Tablet 50 mEq Route: PO; ed1 21:04 Follow up: Response: No adverse reaction ed1 20:22 Drug: Tessalon Perle 200 mg Route: PO; ed1 21:05 Follow up: Response: No adverse reaction ed1 23:00 Drug: NS 0.9% 1000 ml Route: IV; Rate: 1 bolus; Site: left antecubital; rv 02/25 00:12 Follow up: IV Status: Completed infusion; IV Intake: 1000ml cr4 Disposition: 01:57 Co-signature as Attending Physician, Ryder Vogel MD. pkl Disposition: 02/25/19 00:01 Discharged to Home. Impression: Fever, unspecified, Headache, Acute upper respiratory infection, unspecified. - Condition is Stable. - Discharge Instructions: Form - Return To Work, Fever, Adult, Upper Respiratory Infection, Adult. - Prescriptions for Ibuprofen 800 mg Oral Tablet - take 1 tablet by ORAL route every 8 hours As needed take with food; 30 tablet. Tessalon Perles 100 mg Oral Capsule - take 2 capsule by ORAL route every 8 hours As needed; 30 capsule. - Medication Reconciliation Form, Thank You Letter, Antibiotic Education, Prescription Opioid Use, Work release form form. - Follow up: Private Physician; When: 2 - 3 days; Reason: Worsening of condition. - Problem is new. - Symptoms have improved. Signatures: Dispatcher [employer] EDMS Ryder Vogel MD MD pkl Maria De Jesus Sinha RN RN cr4 Nancy Haywood RN RN ed1 Gabo Humphreys RN RN hj Page, Corey, PA PA cp Vicente, Ronaldo, RN RN rv Corrections: (The following items were deleted from the chart) 02/24 20:08 20:07 Normal except: WBC 12.1; HGB 11.5; HCT 34.7; NEUT A 8.6. mireille kendrick 02/25 00:24 00:01 02/25/2019 00:01 Discharged to Home. Impression: Fever, unspecified; Headache; cr4 Acute upper respiratory infection, unspecified. Condition is Stable. Forms are Medication Reconciliation Form, Thank You Letter, Antibiotic Education, Prescription Opioid Use. Follow up: Private Physician; When: 2 - 3 days; Reason: Worsening of condition. Problem is new. Symptoms have improved. cp
== END 2019-02-25 00:24 | disposition home or self-care (01) ==
LOC: ER 17:58
PROC: 009U3ZX Drainage of Spinal Canal, Percutaneous Approach, Diagnostic (ICD-10-PCS; principal; 2019-02-25)
DX: R51 Headache (principal); J06.9 Acute upper respiratory infection, unspecified
CPT/HCPCS: 36415; 62270; 70450; 71046; 80048; 81003; 81015; 81025; 82945; 84157; 85025; 86403; 87070; 87081; 87086; 87088; 87804; 89050; 96360; 96361; 99284; J7030